=== PATIENT | male | born 1985 | race Caucasian/White ===

== ENCOUNTER 2017-10-28 22:01 | Emergency (ER) | payer OTHER ==
[~2017-10-28] VITALS: Ht 175.3 cm; Wt 81.6 kg
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
[2017-10-29] MEDS ORDERED: KEFLEX500 M1 PO (00:03)
[2017-10-29 00:12] VITALS: BP 122/78
== END 2017-10-29 00:12 ==
LOC: ERH 22:01
DX: S31.104A Unspecified open wound of abdominal wall, left lower quadrant without penetration into peritoneal cavity, initial encounter (principal); W34.010A Accidental discharge of airgun, initial encounter
CPT/HCPCS: 74022; 90471; 90714; J2001